=== PATIENT | female | born 1930 | race African-American/Black ===

== ENCOUNTER 2016-11-12 15:03 | Outpatient (CLI) | payer MEDICARE ==
[2016-11-12 15:25] LABS: #Basophils 0.1 thou/uL (0.0-0.2); #Eosinphils 0.1 thou/uL (0.0-0.7); #Lymphocytes 2.3 thou/uL (1.20-3.40); #Monocytes 0.6 thou/uL (0.11-0.59); #Neutrophils 3.7 thou/uL (1.40-6.50); %Basophils 1.1 % (0.0-1.0); %Eosinophils 1.9 % (0.0-10.0); %Monocytes 8.8 % (0.0-10.0); Hematocrit 37.7 % (36.0-47.0); Mean Platelet Volume 7.1 fL (7.4-10.4); Red Blood Cell (RBC) Count 4.04 mill/uL (4.20-5.40); White Blood Cell (WBC) Count 6.8 thou/uL (4.8-10.8)
== END 2016-11-12 15:04 | disposition home or self-care (01) ==
LOC: HPCALD 15:03
PROVIDERS: ATTEND Family Medicine
DX: K62.5 Hemorrhage of anus and rectum (principal)
CPT/HCPCS: 36415; 85025

== ENCOUNTER 2017-04-10 14:02 | Outpatient (CLI) | payer MEDICARE | END 2017-04-10 14:03 | disposition home or self-care (01) | LOC: HPCALD 14:02 | PROVIDERS: ATTEND Family Medicine | DX: N39.0 Urinary tract infection, site not specified (principal) | CPT/HCPCS: 87086 ==

== ENCOUNTER 2017-05-08 10:25 | Outpatient (CLI) | payer MEDICARE ==
[2017-05-08 11:21] LABS: #Basophils 0.1 thou/uL (0.0-0.2); #Eosinphils 0.1 thou/uL (0.0-0.7); #Monocytes 0.7 thou/uL (0.11-0.59); #Neutrophils 4.3 thou/uL (1.40-6.50); %Basophils 1.1 % (0.0-1.0); %Eosinophils 1.9 % (0.0-10.0); %Lymphocytes 27.9 % (21.0-51.0); %Monocytes 10.2 % (0.0-10.0); %Neutrophils 58.9 % (42.0-75.0); Hemoglobin 11.4 g/dL (12.0-16.0); Mean Corpuscular HGB CONC 33.9 g/dL (32.0-36.0); Mean Corpuscular Hemoglobin 31.5 pg (27.0-31.0); Mean Corpuscular Volume 92.8 fl (81.0-99.0); Mean Platelet Volume 6.8 fL (7.4-10.4); Platelet Count 216 thou/uL (130-400); White Blood Cell (WBC) Count 7.3 thou/uL (4.8-10.8)
[2017-05-08 11:36] LABS: ALT (SGPT) 10 U/L (8-55); AST (SGOT) 15 U/L (5-34); Albumin 3.7 g/dL (3.4-4.8); Alkaline Phosphatase 68 U/L (40-150); Anion Gap 14 mmol/L (10-20); BUN (Urea Nitrogen) 26 mg/dL (9.8-20.1); Bilirubin, Total 0.6 mg/dL (0.2-1.2); Calc. Creatinine Clearance 0 mL/min (70-130); Calcium 9.3 mg/dL (7.8-10.44); Carbon Dioxide 26 mmol/L (23-31); Cardiac Risk 2.8 (Less than 4.5); Chloride 101 mmol/L (98-107); Cholesterol 186 mg/dl (< 200 Desired); Estimated GFR-MDRD 54; Globulin 3.2 g/dL (2.4-3.5); Glucose 106 mg/dL (83-110); HDL Cholesterol 67 mg/dL (>60 Neg Risk); LDL Cholesterol, Calculated 108 mg/dL; Protein, Total 6.9 g/dL (6.0-8.3); Sodium 137 mmol/L (136-145); Triglycerides 55 mg/dL (Less than 150)
== END 2017-05-08 10:26 | disposition home or self-care (01) ==
LOC: HPCALD 10:25
PROVIDERS: ATTEND Family Medicine
DX: Z13.6 Encounter for screening for cardiovascular disorders (principal); I10 Essential (primary) hypertension
CPT/HCPCS: 36415; 80053; 80061; 85025

== ENCOUNTER 2017-08-22 14:12 | Emergency (ER) | payer MEDICARE ==
[2017-08-22 14:53] LABS: #Basophils 0.1 thou/uL (0.0-0.2); #Eosinphils 0.1 thou/uL (0.0-0.7); #Lymphocytes 1.9 thou/uL (1.20-3.40); #Monocytes 0.8 thou/uL (0.11-0.59); #Neutrophils 3.6 thou/uL (1.40-6.50); %Basophils 1.1 % (0.0-1.0); %Eosinophils 1.6 % (0.0-10.0); %Lymphocytes 29.2 % (21.0-51.0); %Monocytes 12.3 % (0.0-10.0); %Neutrophils 55.8 % (42.0-75.0); Hemoglobin 10.7 g/dL (12.0-16.0); Mean Corpuscular HGB CONC 33.7 g/dL (32.0-36.0); Mean Platelet Volume 8.4 fL (7.4-10.4); Platelet Count 170 thou/uL (130-400); RBC Distribution Width 12.3 % (11.5-14.5); Red Blood Cell (RBC) Count 3.36 mill/uL (4.20-5.40); White Blood Cell (WBC) Count 6.5 thou/uL (4.8-10.8)
[2017-08-22 15:21] LABS: ALT (SGPT) 12 U/L (8-55); Albumin 3.4 g/dL (3.4-4.8); Alkaline Phosphatase 58 U/L (40-150); BUN (Urea Nitrogen) 19 mg/dL (9.8-20.1); Bilirubin, Total 0.5 mg/dL (0.2-1.2); Calc. Creatinine Clearance 0 mL/min (70-130); Calcium 9.1 mg/dL (7.8-10.44); Carbon Dioxide 21 mmol/L (23-31); Chloride 102 mmol/L (98-107); Estimated GFR-MDRD 42; Globulin 3.8 g/dL (2.4-3.5); Glucose 115 mg/dL (83-110); Protein, Total 7.2 g/dL (6.0-8.3); Sodium 131 mmol/L (136-145)
[2017-08-22 15:22] LABS: Anion Gap 14 mmol/L (10-20)
[2017-08-22] MEDS ORDERED: Ondansetron HCl/PF 4 MG/2 ML Vial ONE (15:29)
[2017-08-22] MEDS ORDERED: Sodium Chloride 0.9% 0 ML ONE (15:30)
[2017-08-22] MEDS ORDERED: cefTRIAXone\\ROCEPHIN 500 MG VIAL ONE (15:30)
[2017-08-22 15:49] LABS: AST (SGOT) 14 U/L (5-34); Potassium 4.6 mmol/L (3.5-5.1)
[2017-08-22 16:05] LABS: Bilirubin Negative (Negative); Blood, Urine Small (Negative); Clarity Cloudy (Clear); Glucose, Urine (Dipstick) Negative (Negative); Leukocyte Large (Negative); Nitrite Negative (Negative); Protein, Urine (Dipstick) Negative (Neg-Trace); Specific Gravity, Urine 1.015 (1.005-1.030); Urobilinogen 0.2 mg/dL (0.2-1.0)
[2017-08-22 16:12] LABS: Bacteria/HPF 4+ HPF (None Seen); Crystals/HPF None Seen HPF (Negative); Hyaline Casts/LPF NONE SEEN LPF (0-3 Hyaline); Other Casts/LPF None Seen LPF (0-3 Hyaline); Oval Fat Bodies/HPF None Seen HPF (None Seen); RBC/HPF 0-3 HPF (0-3); Renal Epithelial None Seen HPF (0-3); Sperm/HPF None Seen HPF (None Seen); Transitional Epithelial NONE SEEN HPF (0-3); Trichomonas/HPF None Seen HPF (None Seen); Yeast-All Forms None Seen HPF (None Seen)
== END 2017-08-22 18:11 | disposition short-term general hospital (02) ==
LOC: BURERS 14:12
DX: K92.2 Gastrointestinal hemorrhage, unspecified (principal); R00.1 Bradycardia, unspecified; I11.0 Hypertensive heart disease with heart failure; I50.9 Heart failure, unspecified; E78.5 Hyperlipidemia, unspecified; Z79.82 Long term (current) use of aspirin; Z79.899 Other long term (current) drug therapy
CPT/HCPCS: 80053; 81003; 81015; 82274; 85025; 87077; 87086; 87186; 93005; 96374; J0696; J2405; J7050

== ENCOUNTER 2018-08-14 14:10 | Emergency (ER) | payer MEDICARE ==
[2018-08-14] MEDS ORDERED: HYDROcodone/Acetaminophen 5/325 mg Tablet ONE (14:33)
[2018-08-14] MEDS ORDERED: Ibuprofen 800 MG TAB ONE (14:33)
[2018-08-14] MEDS ORDERED: Acetaminophen 500 MG TAB ONE (15:27)
--- NOTE | 2018-08-14 17:27 | RAD ---
PORTABLE CHEST: Date: 08/14/18 Comparison is made with the 05/13/18 study. The heart is mildly enlarged, but unchanged in size. There is no vascular congestion, edema, or pleur al effusion. The mediastinum is unremarkable. There is no focal infiltrate. Some calcifications are s een in the lungs, particularly on the right side, that are presumably granulomatous in nature. No alfonzo ss fractures identified. Small ones would be missed. IMPRESSION: Mild cardiomegaly, but no acute finding. POS: HOME
--- NOTE | 2018-08-14 17:29 | RAD ---
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 There is nearly complete loss of space be tween the humeral head and acromion, which also implies chronic rotator cuff thinning. The AC joint i s not widened, but there is abundant degenerative change around it. Bony density is seen at the later al aspect of the greater tubercle of the humerus. I cannot exclude a small avulsion here, age-indeter minate. There is no fracture of the humeral neck or the scapula. IMPRESSION: Severe degenerative changes noted. One area questions a small avulsion from the greater tubercle, but it could be old. CODE T. POS: HOME
--- NOTE | 2018-08-14 17:31 | RAD ---
LEFT KNEE 4 VIEWS: Date: 08/14/18 No fracture or joint effusion seen. A knee arthroplasty is in place with no sign of loosening or infe ction. There is a large amount of soft tissue swelling anterior to the joint, particularly in the inf rapatellar region. This appears to be all soft tissue in nature. I would not, however, that the dista l femur seems to sit a little more anteriorly on the tibial plateau than I often seen. I cannot exclu de this being subluxed anteriorly a bit. IMPRESSION: 1. No fracture visible. Considerable anterior infrapatellar soft tissue swelling. 2. Femoral component of arthroplasty seems to sit a bit more anterior with respect to the tibial capo teau component than usual. I cannot exclude subluxation here. Correlate with clinical exam. CODE T. POS: HOME
--- NOTE | 2018-08-14 17:32 | RAD ---
RIGHT HUMERUS 2 VIEWS: Date: 08/14/18 The humerus appears intact. No fracture of the shaft or neck seen. See comments regarding the shoulde r itself. No gross findings of elbow are seen, but the sensitivity is low. Symptoms here would requir e separate films. IMPRESSION: No acute findings. POS: HOME
== END 2018-08-14 16:25 | disposition home or self-care (01) ==
LOC: BURERS 14:10
DX: S40.011A Contusion of right shoulder, initial encounter (principal); S80.02XA Contusion of left knee, initial encounter; S20.212A Contusion of left front wall of thorax, initial encounter; I11.0 Hypertensive heart disease with heart failure; I50.9 Heart failure, unspecified; E78.5 Hyperlipidemia, unspecified; Z79.899 Other long term (current) drug therapy; Z79.82 Long term (current) use of aspirin; W18.30XA Fall on same level, unspecified, initial encounter
CPT/HCPCS: 71045

== ENCOUNTER 2018-12-16 09:59 | Outpatient (CLI) | payer MEDICARE ==
--- NOTE | 2018-12-16 16:32 | RAD ---
LEFT KNEE: Comparison with the prior exam shows no acute changes. The knee arthroplasty shows no sign of loos ening or infection. There is no fracture or periosteal reaction. IMPRESSION: No acute findings POS: HOME
== END 2018-12-16 10:00 | disposition home or self-care (01) ==
LOC: BURRAD 09:59
PROVIDERS: ATTEND Family Medicine
DX: M25.562 Pain in left knee (principal)

== ENCOUNTER 2019-02-03 11:09 | Emergency (ER) | payer MEDICARE ==
[2019-02-03] MEDS ORDERED: Ondansetron ODT 4 MG TAB ONE (11:31)
[2019-02-03 11:45] LABS: #Eosinphils 0.1 thou/uL (0.0-0.7); #Lymphocytes 1.7 thou/uL (1.20-3.40); #Monocytes 0.5 thou/uL (0.11-0.59); #Neutrophils 4.4 thou/uL (1.40-6.50); %Basophils 0.5 % (0.0-1.0); %Eosinophils 1.5 % (0.0-10.0); %Lymphocytes 25.8 % (21.0-51.0); %Monocytes 7.4 % (0.0-10.0); %Neutrophils 64.8 % (42.0-75.0); Hemoglobin 10.7 g/dL (12.0-16.0); Mean Corpuscular HGB CONC 31.7 g/dL (32.0-36.0); Mean Corpuscular Hemoglobin 29.3 pg (27.0-31.0); Mean Corpuscular Volume 92.5 fL (78.0-98.0); Mean Platelet Volume 6.5 fL (7.4-10.4); Platelet Count 231 thou/uL (130-400); RBC Distribution Width 12.6 % (11.5-14.5); Red Blood Cell (RBC) Count 3.66 mill/uL (4.20-5.40); White Blood Cell (WBC) Count 6.7 thou/uL (4.8-10.8)
[2019-02-03 12:00] LABS: ALT (SGPT) 11 U/L (8-55); AST (SGOT) 18 U/L (5-34); Albumin 3.6 g/dL (3.4-4.8); Alkaline Phosphatase 74 U/L (40-150); Anion Gap 11 mmol/L (10-20); BUN (Urea Nitrogen) 12 mg/dL (9.8-20.1); Bilirubin, Total 0.4 mg/dL (0.2-1.2); Calc. Creatinine Clearance 0 mL/min (70-130); Calcium 9.3 mg/dL (7.8-10.44); Carbon Dioxide 25 mmol/L (23-31); Chloride 99 mmol/L (98-107); Estimated GFR-MDRD 77; Globulin 3.6 g/dL (2.4-3.5); Glucose 103 mg/dL (83-110); Lipase 63 U/L (8-78); Protein, Total 7.2 g/dL (6.0-8.3); Sodium 131 mmol/L (136-145)
== END 2019-02-03 12:20 | disposition home or self-care (01) ==
LOC: BURERS 11:09
DX: R11.2 Nausea with vomiting, unspecified (principal); T40.4X5A Adverse effect of other synthetic narcotics, initial encounter; I11.0 Hypertensive heart disease with heart failure; I50.9 Heart failure, unspecified; Z87.891 Personal history of nicotine dependence; Z79.899 Other long term (current) drug therapy
CPT/HCPCS: 36415; 80053; 83690; 85025; Q0162

== ENCOUNTER 2019-02-03 17:25 | Outpatient (CLI) | payer MEDICARE ==
--- NOTE | 2019-02-03 20:38 | RAD ---
LEFT KNEE FOUR VIEWS: 02/03/2019 COMPARISON: 08/14/2018 FINDINGS: A total knee arthroplasty is in place, as before. There is no sign of loosening or infection around the hardware. No fracture is seen. There might be a small amount of joint fluid, but this is equivo rufino. Faint arterial calcifications are present. IMPRESSION: No acute bony findings. POS: HOME
== END 2019-02-03 17:26 | disposition home or self-care (01) ==
LOC: BURRAD 17:25
PROVIDERS: ATTEND Family Medicine
DX: M25.562 Pain in left knee (principal)
CPT/HCPCS: 36415; 80053; 83690; 85025; Q0162